=== PATIENT | female | born 1965 | race Caucasian/White ===

== ENCOUNTER → 2018-02-25 00:22 | Outpatient (CLI) | payer BC, SELFPAY ==
--- NOTE | 2018-02-25 11:28 | DI.REPORT_ITS ---
SYMPTOM/DIAGNOSIS: BASELINE, Z12.31, Z789 MAMMOGRAM: Mammograms were interpreted according to the usual protocol including computer analysis with CAD system, tomosynthesis and C view imaging. This is a baseline examination. Breast density category C. No suspicious masses or microcalcifications are seen. The skin and axilla are unremarkable. . IMPRESSION: No evidence for malignancy. Yearly mammography is recommended. Category 1-C MQSA ASSESSMENT OF FINDINGS: Negative. Category 1. Patient will receive a letter notifying them of these results. Bi-RADS category C. The breasts are heterogeneously dense, which may obscure small masses..
== END ==
PROVIDERS: PCP Family Medicine; Visit Provider Advanced Practice Midwife
DX: Z12.31 Encounter for screening mammogram for malignant neoplasm of breast (principal)
CPT/HCPCS: 77063; 77067

== ENCOUNTER 2018-06-06 16:29 | Outpatient (CLI) | payer BC, SELFPAY ==
[2018-06-09 11:22] LABS: CA 125 7 U/mL (0-30)
== END 2018-06-06 16:49 ==
PROVIDERS: PCP Family Medicine; Visit Provider Obstetrics & Gynecology Gynecology
DX: R14.0 Abdominal distension (gaseous) (principal); Z80.41 Family history of malignant neoplasm of ovary
CPT/HCPCS: 86304

== ENCOUNTER 2018-06-24 00:24 | Outpatient (CLI) | payer BC, SELFPAY ==
--- NOTE | 2018-06-24 12:50 | DI.US_ITS ---
SYMPTOMS/DIAGNOSIS: ABDOMINAL BLOATING, R14.0, GASEOUS DISTENTION PELVIC ULTRASOUND: Transabdominal and transvaginal examination was performed. Comparison is . The uterus measures 9 cm long x 4.9 cm AP x 6.1 cm transverse. The uterus is heterogeneous with at least three discrete hypoechoic masses within the myometrium, the largest measuring 1.9 cm. These are most suggestive of uterine fibroids. The endometrial stripe is within normal limits at 0.7 cm. Cervical nabothian cysts are present. The right ovary measures 2.6 x 1.5 x 2.0 cm. It contains small follicular cysts. There is normal blood flow. No evidence of torsion. The left ovary measures 2.4 x 1.2 x 2.2 cm. There is normal blood flow. No evidence of torsion. There is a small amount of free fluid in the pelvis, which is likely physiologic. No hydronephrosis is seen. IMPRESSION: Uterine fibroids. Otherwise negative examination.
== END 2018-06-24 00:44 ==
PROVIDERS: PCP Family Medicine; Visit Provider Obstetrics & Gynecology Gynecology
DX: R14.0 Abdominal distension (gaseous) (principal); D25.9 Leiomyoma of uterus, unspecified
CPT/HCPCS: 76830; 76856

== ENCOUNTER 2019-12-28 14:11 | Outpatient (REF) | payer BC, SELFPAY ==
--- NOTE | 2019-12-28 13:50 | PAPFT_PTH ---
PATIENT: Gissell Arreaga LOC: N U#:[id number] AGE/SX: 54/F ROOM: RE12/28/[address]: Ester Sims DO : 1965 BED: DIS: 12/28/2019 SPEC #: [id number] RECD: 12/28/19 16:48 STATUS: ROBERT REQ #: [id number] ANGEL: 12/28/19 13:[address]: Ester Sims DEPT: [facility] Cytology RECD BY: Roberta Espino ENTERED: 12/28/19 16:48 SP TYPE: PAPFT OTHR DR: Trinh Valadez MD Tissues: 1 - CX/ENDOCX FOR PAP SMEARS Procedures: PAP THIN PREP/UVM Screening HPV DNA PROBE Comments: [id number]
== END 2019-12-28 14:31 ==
LOC: LBN 14:11
PROVIDERS: PCP Family Medicine; Visit Provider Obstetrics & Gynecology
DX: Z12.4 Encounter for screening for malignant neoplasm of cervix (principal); Z11.51 Encounter for screening for human papillomavirus (HPV)
CPT/HCPCS: 88142; 87624

== ENCOUNTER 2019-12-31 01:30 | Outpatient (CLI) | payer BC, SELFPAY ==
--- NOTE | 2019-12-31 08:30 | DI.US_ITS ---
EXAM: US PELVIS TRANSVAGINAL CLINICAL HISTORY: OVARIAN CANCER SCREENING,FAMILY H/O OVARIAN CA,Z80.41. TECHNIQUE: Transabdominal and transvaginal pelvic ultrasound was performed using standard protocol. COMPARISON: US US PELVIS TRANSVAGINAL from 06/24/2018 FINDINGS: KIDNEYS: Kidneys are symmetric in size. No evidence of renal calculi. No evidence of hydronephrosis. No renal mass or cyst identified. UTERUS: Position: Retroverted Size: 8.6 long x 4.7 AP x 6.0 transverse cm Endometrium: 0.6 cm. Normal for patient's menstrual status. Myometrium: There are at least 3 myometrial masses. The largest is seen in the fundus and measures 1 .8 x 1.9 x 2.2 cm. Cervix: Nabothian cysts. OVARIES: Right: 2.1 x 1.3 x 1.3 cm Cyst or mass: None. Left: 3.4 x 1.8 x 1.8 cm Cyst or mass: 1.5 x 1.1 x 1.2 cm simple cyst. DOPPLER: Color: Symmetric and uniform flow to both ovaries. No hyperemia. Duplex: Normal ovarian arterial waveforms visualized. CUL-DE-SAC: Free fluid: Small amount of free fluid likely physiologic. Other: None. IMPRESSION: 1. Normal sonographic appearance of the kidneys. 2. Fibroid uterus. 3. Unremarkable bilateral ovaries. DATA REPOSITORY:
== END 2019-12-31 01:50 ==
PROVIDERS: PCP Family Medicine; Visit Provider Obstetrics & Gynecology
DX: D25.9 Leiomyoma of uterus, unspecified (principal); Z80.41 Family history of malignant neoplasm of ovary
CPT/HCPCS: 76830; 76856

== ENCOUNTER 2020-01-18 01:47 | Outpatient (CLI) | payer BC, SELFPAY ==
--- NOTE | 2020-01-18 12:27 | DI.MAMMO_ITS ---
EXAM: MG MAMMO SCREENING CLINICAL HISTORY: screening Z12.39 TECHNIQUE: Bilateral full field digital CC and MLO mammographic images were obtained with 3D tomosyn thesis and utilizing computer aided detection (CAD). COMPARISON: Available for comparison. FINDINGS: Masses/Architectural Distortion: None seen. Microcalcifications: No suspicious pleomorphic-type are seen. Skin Thickening/Nipple Retraction: None. IMPRESSION: 1. No significant interval change with no specific features of malignancy noted. 2. Unless there is more urgent need, screening mammography is recommended, as per [employer] guidelines. BI-RADS Category 1 - Negative Breast Density - Category C - Heterogeneously dense The mammogram demonstrates the patient's breast tissue is dense. Dense breast tissue is very common a nd is not abnormal but dense breast tissue can make it harder to find cancer on a mammogram. Also, de nse breast tissue may increase their breast cancer risk. This information about the result of the [facility] mogram report was provided to the patient to raise their awareness. Use this report when you speak wi th the patient about their risks for breast cancer, which includes their family history. At that time , you may recommend for more screening tests (Ultrasound or MRI) as they might be useful based on the ir risk. A negative radiographic report should not delay biopsy if a dominant or clinically suspicious mass is present. Up to ten percent of cancers are not identified on mammography. A negative report may reinforce clinical impression. Adenosis and dense breasts may obscure an underlying neoplasm. False positive reports average 6 to 10%. Patient will receive a letter notifying them of these results.
== END 2020-01-18 02:07 ==
PROVIDERS: PCP Family Medicine; Visit Provider Obstetrics & Gynecology
DX: Z12.31 Encounter for screening mammogram for malignant neoplasm of breast (principal)
CPT/HCPCS: 77063; 77067

== ENCOUNTER 2020-03-07 07:55 | Day surgery (SDC) | payer BC, SELFPAY ==
--- NOTE | 2020-03-07 05:56 | COLE_ITS ---
Date of service: 03/07/20 Time of Service: 09:40 Colonoscopy Report Date of procedure: 03/07/20 Pre-op diagnosis general: Colon Cancer SCREENING Post-op diagnosis procedure note: other (Diverticulosis and polyps) Procedure: Colonoscopy with polypectomy Surgeon: Daphne Michele Anesthesia proc note operative: other (General/ ASA 2/ Krissy Bliss CRNA) Estimated blood loss (mL): 2 Pathology: other (Sigmoid polyps x8) Complications: None Disposition: other (General/ ASA /) Indications: 54 y/o female with history of irritable colon presents for her first colonoscopy screening pre-op. She denies a family history of colon cancer. She does have a family history of ovarian and breast cancer. She denies any changes in bowel habits including bloody or black tarry stools, abdominal pain, diarrhea or constipation. She denies constitutional symptoms. Denies use of marijuana or any other recreational or illegal drugs. She denies chest pain, palpitations, dyspnea or dyspnea with exertion. She denies prior history or family history of adverse reactions or complications with anesthesia.She reports that following an endoscopy at [facility] they notified her that she required a significant amount of sedation to complete the proc edure. She is physically active participating in activities such as kayaking, swimming and walking. Prep: Miralax/Dulcolax Procedure Start Time: 09:06 Procedure End Time: 09:35 Retraction Time: 19 minutes Findings: 8 small polyps in the sigmoid colon Procedure Description: After informed consent was obtained the patient was taken to the procedure room and placed in a left decubitous position. Monitors were applied and a time out was done. The patients name, date of , procedure, allergies to medications and metal in their body was reviewed. The patient was then sedated. Once sedated and comfortable a rectal exam was done. External exam was normal. Internal exam revealed a normal sphincter tone and no palpable masses. The scope was then introduced and retro-flexed. No internal hemorrhoids were identified. The scope was then advanced to the cecum without difficulty. The ileocecal valve and appendiceal orifice were identified. The prep was adequate. The scope was then slowly retracted over 19 minutes back into the rectum. Polyps were removed with cold forceps in the sigmoid colon x8. There was mild diverticulosis of the sigmoid colon. The scope was removed and the patient was woken up and taken back to Same day surgery in stable condition. The patient tolerated the procedure well and there were no immediate complications. Follow up: The patient should follow up in 3-5 years unless they develop changes in bowel habits or other new gastrointestinal complaints.
--- NOTE | 2020-03-07 05:58 | PDOC.DSDIS_ITS ---
Discharge Plan Disposition Patient Disposition: HOME Condition: Good Discharge Details Reason For Visit: Colon Cancer Screening Attending Provider: Daphne Michele Primary Care Provider: Trinh Valadez Home Meds and New Rx's Prescriptions: Continued pyridoxine (vitamin B6) [Vitamin B-6] 100 mg tablet 100 mg PO DAILY PRNRF: 0 multivitamin Capsule 1 cap PO DAILY RF: 0 Manning Oil 1,000 MG capsule 1,000 mg PO DAILY RF: 0 Vit d3 2,000 units PO DAILY RF: 0 Cbd Oil 0.25 tsp PO DAILY PRNRF: 0 Discontinued polyethylene glycol 3350 17 gram/dose powder 238 g PO ONCE Qty: 238 RF: 0 bisacodyl [Dulcolax (bisacodyl)] 5 mg tablet,delayed release (DR/EC) 5 mg PO ONCE Qty: 4 RF: 0 Discharge Instructions Instructions: Diverticulosis (DC), Colorectal Polyps (DC) Additional Instructions: Findings: mild diverticulosis 8 small polyps Follow up: 305 years Please call if you develop: fevers >101.5 Nausea or Vomiting Abdominal pain that is not transient DAY SURGERY UNIT POST ENDOSCOPY INSTRUCTIONS 1. Because there will be medication in your system for the next 24 hours, you may feel a little sleepy. Your coordination will be affected. Therefore: a. Do not drive or operate dangerous equipment for 24 hours. b. Do not drink alcohol beverages for 24 hours (not even beer). c. Plan to go home and rest for the day. 2. Generally there are no restrictions on your activity after a day or so has gone by, but you may feel a bit fatigued for a few days. 3 After you arrive home you may have a light meal and return to a normal diet as you can tolerate it without feeling sick to your stomach. 4. After surgery, you may feel pain or discomfort. This should be only transient, but if it persists please contact your doctor. 5. If there are any questions regarding the findings of your procedure, please feel free to contact your doctor. 6. If you are unable to contact your doctor with a problem, contact the hospital at [phone]. 7. Continue all your regular medications unless directed otherwise. I understand the above instructions and have no questions. Signature of Patient or Responsible Adult Escort Date/Time Name of Responsible Adult Escort Signature of Nurse Date/Time Activity:: Activity as Tolerated Diet:: High Fiber diet Discharge Orders Discharge Orders: Discharge Order (Routine); Ordered 03/07/20 Ordered By: Daphne Michele
[2020-03-07 08:02] VITALS: BP 121/74; PULSE 76; RESP 16; TEMP 36.9; O2SAT 100
[2020-03-07] MEDS: Lactated Ringers 1,000 ML 80 ML IV (08:58)
--- NOTE | 2020-03-07 09:30 | BOWEL_PTH ---
PATIENT: Gissell Arreaga LOC: [facility] U#:[id number] AGE/SX: 54/F ROOM: RE03/07/[address]: Daphne Michele MD : 1965 BED: DIS: 03/07/2020 SPEC #: [id number] RECD: 03/07/20 10:38 STATUS: ROBERT REQ #: [id number] ANGEL: 03/07/20 09:[address]: Daphne Michele DEPT: Surgical Specimen RECD BY: Lucina Boswell ENTERED: 03/07/20 10:39 SP TYPE: Bowel OTHR DR: Trinh Valadez MD Tissues: 1 - BIOPSY BOWEL Procedures: GROSS AND MICRO LEVEL 4 Comments: [id number]
[2020-03-07 10:14] VITALS: BP 125/89; PULSE 76; RESP 18; TEMP 36.5; O2SAT 100
[2020-03-07] MEDS: Hyoscyamine 0.125 MG SL/ORAL/CHEW SL (10:36)
--- NOTE | 2020-03-07 11:00 | DI.RAD_ITS ---
EXAM: 2D digital imaging was performed. CLINICAL HISTORY: abdominal pain. COMPARISON: No exams were available for comparison TECHNIQUE: Supine views of the abdomen performed. FINDINGS: BOWEL GAS PATTERN: There is gaseous distention of the colon but no findings to suggest obstruction. There is mild distention of small bowel. CALCIFICATIONS: No radiopaque calcifications. Renal contours are obscured by bowel gas. OSSEOUS STRUCTURES: Normal for age. No evidence of organomegaly. IMPRESSION: 1. Nonspecific gaseous distention of the colon without evidence obstruction. 2. No radiopaque calculi. DATA REPOSITORY: RADIATION DOSE DELIVERED:
--- NOTE | 2020-03-07 11:00 | DI.RAD_ITS ---
EXAM: XR CHEST 2V PA LATERAL CLINICAL HISTORY: abdominal pain TECHNIQUE: 2D digital imaging was performed. COMPARISON: No exams were available for comparison FINDINGS: MEDIASTINUM: Normal. HEART: Normal. PULMONARY VASCULATURE: Normal. LUNGS: Clear. PLEURAL SPACE: No pleural effusion or pneumothorax. BONE:Normal. No free air beneath the diaphragm. IMPRESSION: No acute pulmonary findings. DATA REPOSITORY: RADIATION DOSE DELIVERED:
[2020-03-07 11:17] VITALS: BP 129/83; PULSE 70; RESP 22; TEMP 36.5; O2SAT 100
== END 2020-03-07 12:29 | disposition home or self-care (01) ==
LOC: SUR 07:56
PROVIDERS: PCP Family Medicine; Visit Provider Surgery
PROC: 0DJD8ZZ Inspection of Lower Intestinal Tract, Via Natural or Artificial Opening Endoscopic (ICD-10-PCS; CPT 45378; principal; 2020-03-07 09:30)
DX: Z12.11 Encounter for screening for malignant neoplasm of colon (principal); K57.30 Diverticulosis of large intestine without perforation or abscess without bleeding; K63.5 Polyp of colon; Z85.43 Personal history of malignant neoplasm of ovary; Z85.3 Personal history of malignant neoplasm of breast; R10.9 Unspecified abdominal pain
CPT/HCPCS: 45380; 88305; 71046; 74018; J2001; J2704; J3490

== ENCOUNTER 2021-01-24 03:09 | Outpatient (CLI) | payer BC, SELFPAY ==
--- NOTE | 2021-01-24 08:00 | DI.MAMMO_ITS ---
Exam(s) MAMMO SCREENING EXAM: MAMMO SCREENING CLINICAL HISTORY: screening,Z12.39 TECHNIQUE: Bilateral full field digital CC and MLO mammographic images were obtained with 3D tomosyn thesis and utilizing computer aided detection (CAD). COMPARISON: Available for comparison. FINDINGS: Masses/Architectural Distortion: There is a question of an area of architectural distortion in the in ferior left breast on the MLO view. This is best appreciated on the tomographic slice image 19. Microcalcifications: No suspicious pleomorphic-type are seen. Skin Thickening/Nipple Retraction: None. IMPRESSION: 1. Additional views of the left breast and left breast ultrasound are recommended for further evaluat ion. 2. Question of an area of architectural distortion in the inferior left breast appreciated on the MLO tomographic views. BI-RADS Category 0 - Assessment Incomplete: Need additional imaging evaluation Breast Density - Category C - Heterogeneously dense Breast density category C or D implies that the patient has dense breast tissue. Dense breast tissue is very common and is not abnormal but dense breast tissue can make it harder to find cancer on a ma mmogram. Also, dense breast tissue may increase their breast cancer risk. This information about the result of the mammogram report was provided to the patient to raise their awareness. Use this report when you speak with the patient about their risks for breast cancer, which includes their family hist ory. At that time, you may recommend for more screening tests (Ultrasound or MRI) as they might be us eful based on their risk. A negative radiographic report should not delay biopsy if a dominant or clinically suspicious mass is present. Up to ten percent of cancers are not identified on mammography. A negative report may reinforce clinical impression. Adenosis and dense breasts may obscure an underlying neoplasm. False positive reports average 6 to 10%. Patient will receive a letter notifying them of these results.
== END 2021-01-24 03:29 ==
PROVIDERS: PCP Family Medicine; Visit Provider Obstetrics & Gynecology
DX: Z12.31 Encounter for screening mammogram for malignant neoplasm of breast (principal)
CPT/HCPCS: 77063; 77067

== ENCOUNTER 2021-02-10 04:45 | Outpatient (CLI) | payer BC, SELFPAY ==
--- NOTE | 2021-02-10 | DI.US_ITS ---
Exam(s) MG MAMMO SCREEN CALL BACK UNI US BREAST LT LIMITED EXAM: MG MAMMO SCREEN CALL BACK UNI CLINICAL HISTORY: F/U MAMMO, ? ARCHITECTURAL DISTORTION INFERIOR LT BREAST. TECHNIQUE: Craniocaudal and mediolateral oblique spot compression mammography views of the left renan ast followed by Tomosynthesis and left breast ultrasound. COMPARISON: MG Screening Bilat Mammo from 02/25/2018 MG Screening Bilat Mammo from 02/25/2018 MG MG MAMMO SCREENING from 01/18/2020 MG MG MAMMO SCREENING from 01/24/2021 MG MG MAMMO SCREENING from 01/24/2021 US US BREAST LT LIMITED from 02/10/2021 FINDINGS: Mammography/Tomosynthesis: Masses/Architectural Distortion: Persistent architectural distortion with spiculation there is a cent ral masslike density measuring roughly 1 cm in diameter. An additional circumscribed nodule is now s een measuring 13 millimeters in diameter.. Microcalcifictions: No suspicious pleomorphic-type are seen. Skin Thickening/Nipple Retraction: None. Left breast US: There is a hypoechoic spiculated, shadowing mass located in the 6 o'clock position 4 cm from the nipp le. It measures 10 millimeters in diameter. There is internal vascularity. An additional cyst is n oted in the in the adjacent tissue measuring 11 x 8 x 11 millimeters. No dilated ducts or skin thick ening is seen. IMPRESSION: 1. Suspicious spiculated mass in the inferior left breast. Biopsy is recommended. This is amenable to ultrasound-guided biopsy.. 2. The findings were discussed with the patient and Dr. Tessie Ureña who was covering for Ester Sims , on the date of the examination. BI-RADS Category 5 - Highly Suggestive of Malignancy: Biopsy recommended Breast Density - Category C - Heterogeneously dense A mammogram that demonstrates density of C or D indicates the patient's breast tissue is dense. Dense breast tissue is very common and is not abnormal, but dense breast tissue can make it harder to find cancer on a mammogram. Also, dense breast tissue may increase their breast cancer risk. This informa tion about the result of the mammogram report was provided to the patient to raise their awareness. U se this report when you speak with the patient about their risks for breast cancer, which includes th eir family history. At that time, you may recommend for more screening tests (Ultrasound or MRI) as t janes might be useful based on their risk. A negative radiographic report should not delay biopsy if a dominant or clinically suspicious mass is present. Up to ten percent of cancers are not identified on mammography. A negative report may reinforce clinical impression. Adenosis and dense breasts may obscure an underlying neoplasm. False positive reports average 6 to 10%. Patient will receive a letter notifying them of these results.
== END 2021-02-10 05:05 ==
PROVIDERS: PCP Family Medicine; Visit Provider Obstetrics & Gynecology
DX: Z12.31 Encounter for screening mammogram for malignant neoplasm of breast (principal)
CPT/HCPCS: 76642; 77063; 77067

== ENCOUNTER 2021-02-21 02:43 | Outpatient (CLI) | payer BC, SELFPAY ==
--- NOTE | 2021-02-21 | DI.US_ITS ---
Exam(s) US NEEDLE LOCAL BREAST WO RAD EXAM: US NEEDLE LOCAL BREAST WO RAD CLINICAL HISTORY: LT BREAST MASS, ULTRASOUND GUIDED CORE BX TECHNIQUE: Ultrasound performed using standard protocol. COMPARISON: US US BREAST LT LIMITED from 02/10/2021 FINDINGS: Ultrasound guidance was provided for breast biopsy performed by Dr. Michele. Please see Dr. Michele' s procedure note. IMPRESSION: DATA REPOSITORY:
--- NOTE | 2021-02-21 14:51 | BREAST_PTH ---
PATIENT: Gissell Arreaga LOC: DI U#:[id number] AGE/SX: 55/F ROOM: RE02/21/[address]: aDphne Michele MD : 1965 BED: DIS: 02/21/2021 SPEC #: [id number] RECD: 02/21/21 17:11 STATUS: ROBERT REQ #: [id number] ANGEL: 02/21/21 14:[address]: Daphne Michele DEPT: Surgical Specimen RECD BY: Roberta Espino ENTERED: 02/21/21 17:13 SP TYPE: Breast OTHR DR: Trinh Valadez MD Tissues: 1 - BREAST BX NEEDLE Procedures: GROSS AND MICRO LEVEL 4 Her-2 Dual CECI ESTROGEN/PROGESTERONE RECEPTOR IPEX STAIN Comments: [id number]
--- NOTE | 2021-02-21 15:24 | W.PROCNOTE ---
Date of service: 02/21/21 Time of Service: 15:24 Procedure Note Date of procedure: 02/21/21 Procedure: Left Breast Core needle biopsy Surgeon/Proceduralist/Physician: Daphne Michele Procedure Diagnosis: Left Breast mass Procedure Description: Pre-op Dx: Left Breast lesion Post-op Dx: same Surgeon: Mike Michele MD Anesthesia: 1% Lidocaine with epi Blood loss: minimal Specimen: core needle biopsy Complications: no immediate complications Procedure: After informed consent was obtained the patient was placed in a supine position. Us was done of the left Breast and the lesion was localized at the 6 o'clock position, 4 cm from the Nipple,by the US tech. The skin was cleaned with alcohol and infiltrated with the above local anesthetic. The skin was then prepped. An incision was made with an 11 blade. Using a 14 gauge core needle 2 specimens were removed and placed on telfa and placed in formalin. A small titanium clip was then placed into the lesion under US guidence. The skin was cleaned and dried and a band aid was applied. The patient tolerated the procedure well and there were no immediate complications.
== END 2021-02-21 03:03 ==
PROVIDERS: PCP Family Medicine; Visit Provider Surgery
DX: C50.812 Malignant neoplasm of overlapping sites of left female breast (principal); Z17.0 Estrogen receptor positive status [ER+]
CPT/HCPCS: 19083; 88305; 76942; 88360; 88368

== ENCOUNTER 2021-05-03 03:12 | Outpatient (CLI) | payer BC, SELFPAY ==
--- NOTE | 2021-05-03 | DI.DEXA_ITS ---
Exam(s) XR DEXA BONE DENSITY W/WO SOCORRO EXAM: XR DEXA BONE DENSITY W/WO SOCORRO CLINICAL HISTORY: LT BREAST CA,C50.912,Z17.0,CURRENT USE OF AROMATASE INHIBITOR THERAPY TECHNIQUE: COMPARISON: No exams were available for comparison FINDINGS: DEXA scan was performed according to the usual protocol. Please see the attached data sheets. Later al vertebral scanogram shows no evidence of vertebral compression fracture and shows spondylolisthesi s or pseudo spondylolisthesis of L4 on L5. Findings for left hip scanning are T-score 0.5 with left femoral neck T-score -0.4. Lumbar spine scanning shows T-score 0.7. Left forearm scanning shows T-score -0.2. IMPRESSION: Findings consistent with normal bone density according to the WHO criteria. RADIATION DOSE DELIVERED: Total DLP
== END 2021-05-03 03:32 ==
PROVIDERS: PCP Family Medicine; Visit Provider Internal Medicine Medical Oncology
DX: C50.912 Malignant neoplasm of unspecified site of left female breast (principal); Z17.0 Estrogen receptor positive status [ER+]
CPT/HCPCS: 77080

== ENCOUNTER 2022-10-05 16:32 | Outpatient (REF) | payer BC, SELFPAY ==
--- NOTE | 2022-10-05 16:30 | PAPFT_PTH ---
PATIENT: Gissell Arreaga LOC: [facility] U#:[id number] AGE/SX: 56/F ROOM: RE10/05/[address]: Sena Carranza : 1965 BED: DIS: 10/05/2022 SPEC #: [id number] RECD: 10/05/22 18:11 STATUS: ROBERT REQ #: [id number] ANGEL: 10/05/22 16:[address]: Sena Carranza DEPT: [facility] Cytology RECD BY: Roberta Espino ENTERED: 10/05/22 18:12 SP TYPE: PAPFT OTHR DR: Luke Can MD Tissues: 1 - CX/ENDOCX FOR PAP SMEARS Procedures: PAP THIN PREP/UVM Screening HPV DNA PROBE Comments: [id number]
== END 2022-10-05 16:33 | disposition home or self-care (01) ==
LOC: LBN 16:32
PROVIDERS: PCP Family Medicine; Visit Provider Obstetrics & Gynecology Gynecology
DX: Z12.4 Encounter for screening for malignant neoplasm of cervix (principal); Z11.51 Encounter for screening for human papillomavirus (HPV)
CPT/HCPCS: 88142; 87624

== ENCOUNTER 2023-08-08 21:38 | Outpatient (REF) | payer BC, SELFPAY ==
[2023-08-08 21:14] LABS: Anion Gap 9.5 mmol/L (3-11); BUN 15 mg/dL (7-18); CO2 28.5 mmol/L (21.0-32.0); CREATININE 0.8 mg/dL (0.55-1.02); Calcium 9.8 mg/dL (8.5-10.1); Chloride 105 mmol/L (98-107); Estimated GFR 86.96 (mL/min/1.73m2); Glucose 95 mg/dL (74-106); Potassium 4.4 mmol/L (3.5-5.1); Sodium 143 mmol/L (136-145)
[2023-08-08 22:16] LABS: Calculated LDL 68 mg/dL (<100); Cholesterol 177 mg/dL (<200); HDL Cholesterol 86 mg/dL (40-60); Triglyceride 117 mg/dL (<150)
[2023-08-13 18:03] LABS: 1,25-Dihydroxyvitamin D 61 pg/mL (18-78)
== END 2023-08-08 21:39 | disposition home or self-care (01) ==
LOC: LBN 21:38
PROVIDERS: PCP Family Medicine; Visit Provider Family Medicine
DX: E78.5 Hyperlipidemia, unspecified (principal); E87.1 Hypo-osmolality and hyponatremia; C43.9 Malignant melanoma of skin, unspecified
CPT/HCPCS: 80048; 80061; 82652

== ENCOUNTER → 2023-10-03 02:46 | Outpatient (CLI) | payer BC, SELFPAY ==
--- NOTE | 2023-10-03 14:30 | DI.DEXA_ITS ---
Exam(s) XR DEXA BONE DENSITY W/WO SOCORRO EXAM: XR DEXA BONE DENSITY W/WO SOCORRO CLINICAL HISTORY: breast cancer; on anastrozole,screening for osteoporosis in postmenopausal TECHNIQUE: COMPARISON: CR XR DEXA BONE DENSITY W/WO SOCORRO from 05/03/2021 FINDINGS: Lateral Spine Image: Unremarkable. No compression deformities identified. There is again seen grade 1 spondylolisthesis of L4 on L5. Left hip: Total T-Score: -0.9. This compares to 0.5 on the prior examination. Total Z-Score: -0.1 T- and Z-scores: No evidence of osteoporosis. Lumbar Spine: Total T-Score: -0.7. This compares to 0.7 on the prior examination. Total Z-Score: 0.4 T- and Z-scores: No evidence of osteoporosis. IMPRESSION: Slight worsening of the bone mineral density compared to the prior examination but no evidence of ost eoporosis.
== END ==
PROVIDERS: PCP Family Medicine; Visit Provider Family Medicine
DX: Z13.820 Encounter for screening for osteoporosis (principal); Z85.3 Personal history of malignant neoplasm of breast
CPT/HCPCS: 77080

== ENCOUNTER 2024-07-08 19:41 | Outpatient (REF) | payer BC, SELFPAY | END 2024-07-08 19:42 | disposition home or self-care (01) | LOC: LBN 19:41 | PROVIDERS: PCP Family Medicine; Visit Provider Physician Assistant | DX: N39.0 Urinary tract infection, site not specified (principal) | CPT/HCPCS: 87077; 87086; 87186 ==

== ENCOUNTER 2024-09-21 17:24 | Outpatient (CLI) | payer BC, SELFPAY ==
--- NOTE | 2024-09-21 13:10 | DI.RAD_ITS ---
Exam(s) XR KNEE RT 4V AP,LAT,SEAN,PAT EXAM: XR KNEE RT 4V AP,LAT,SEAN,PAT CLINICAL HISTORY: M25.569 Pain unspecified knee, evaluate pathology. TECHNIQUE: 2D digital imaging was performed. COMPARISON: No exams were available for comparison FINDINGS: Four views No evidence of acute fracture. There may be a small amount of increased joint fluid. Minimal if any significant degenerative changes. However, on the frontal view there is a small corti cated osteophytic density seen associated with the medial aspect of the medial femoral condyle. This may be a loose intra-articular body or intra-articular osteophyte at this level. Similar findings a re not seen in the lateral and patellofemoral compartments. There are no osteochondral defects. The re are no marginal osteophytes. IMPRESSION: Possible small loose intra-articular body versus intra-articular osteophyte in the inner aspect of th e medial compartment as described above. No joint space narrowing. Small amount of increased joint fluid. DATA REPOSITORY: RADIATION DOSE DELIVERED:
== END 2024-09-21 17:44 ==
LOC: DI 17:25
PROVIDERS: PCP Family Medicine; Visit Provider Nurse Practitioner Family
DX: M25.561 Pain in right knee (principal)
CPT/HCPCS: 73564

== ENCOUNTER 2024-09-21 18:16 | Outpatient (CLI) | payer BC, SELFPAY ==
[2024-09-22 10:05] LABS: Hepatitis C Ab w Rflx HCV PCR Negative (Negative)
[2024-09-22 10:19] LABS: HBs Antibody, Quant <3.1 mIU/mL (See Note); Hep B Surface Ab Negative (See Note); Hepatitis B Core Antibody Negative (Negative); Hepatitis B Surface Antigen Negative (Negative)
[2024-09-22 10:57] LABS: HIV-1/2 Ag & Ab Screen Negative (Negative)
== END 2024-09-21 18:17 | disposition home or self-care (01) ==
LOC: LBO 18:21
PROVIDERS: PCP Family Medicine; Visit Provider Family Medicine
DX: Z00.00 Encounter for general adult medical examination without abnormal findings (principal); Z11.59 Encounter for screening for other viral diseases
CPT/HCPCS: 36415; 86704; 86706; 86803; 87340; 87389

== ENCOUNTER 2024-10-30 00:13 | Outpatient (CLI) | payer BC, SELFPAY ==
--- NOTE | 2024-10-30 07:00 | DI.MRI_ITS ---
Exam(s) MR LOWER JOINT RT WO EXAM: MR LOWER JOINT RT WO CLINICAL HISTORY: R KNEE PAIN, internal derangement rt knee, M23.91. TECHNIQUE: Multiplanar multisequence MRI was performed. COMPARISON: CR XR KNEE RT 4V AP,LAT,SEAN,PAT from 09/21/2024 FINDINGS: BONES: Edema in the medial tibial plateau consistent with bone contusion. There is no discrete fract ure. There is a spur at the posterior tibial plateau centrally. Underlying cystic area consistent w ith degenerative changes. JOINTS: A small joint effusion is present. Articular cartilage: Patellofemoral joint: There is marked thinning of the cartilage at the patellar apex and medial alvarez llar facet, extending down to bone. There is abnormal high signal within the marrow. Medial femoral tibial joint: Articular cartilage is unremarkable. Lateral femoral tibial joint: Articular cartilage is unremarkable. LIGAMENTS/TENDONS: Anterior Cruciate: Unremarkable. Posterior Cruciate: Unremarkable. Medial Collateral:Fluid around medial collateral ligament near the tibial attachment. No visible foc al tear. Lateral Collateral ligament complex: Unremarkable. Extensor mechanism: Unremarkable. Medial retinaculum: Unremarkable. Lateral retinaculum: Unremarkable. Popliteus: Unremarkable. MENISCI: The medial meniscus shows a tear at the root of the posterior horn. Small amount of increased signal is noted in the posterior horn and body. The lateral meniscus is unremarkable. MUSCLES: Fluid extending along the medial head of the gastrocnemius muscle. SOFT TISSUES: Unremarkable. IMPRESSION: Severe patellar chondromalacia. Tear at the root of the posterior horn of the medial meniscus. Contusion of the medial tibial platea u. Medial collateral ligament sprain. Fluid extending superficial to the medial head of the gastrocnemius muscle. DATA REPOSITORY:
== END 2024-10-30 00:33 ==
LOC: DI 00:13
PROVIDERS: PCP Family Medicine; Visit Provider Student in an Organized Health Care Education/Training Program
DX: M23.231 Derangement of other medial meniscus due to old tear or injury, right knee (principal); M22.41 Chondromalacia patellae, right knee
CPT/HCPCS: 73721